=== PATIENT | female | born 1945 | race Two or more races ===

== ENCOUNTER 2022-10-01 15:00 | Emergency (ER) | payer MEDICARE, OTHER ==
[~2022-10-01] VITALS: Ht 167.6 cm; Wt 72.6 kg
--- NOTE | 2022-10-01 15:05 | NUR ---
Pt ambulatory to room 1B, brought in by . Pt c/o pain to the right side of her chest since yesterday. Placed on monitoring coordinator, BP and pulse ox, EKG done. Pt states history of HTN, takes a prescribed medication for it but does not know the name.
[2022-10-01 16:02] LABS: HEMATOCRIT 40.8 % (31.2-41.9); MEAN CORPUSCULAR HEMOGLOBIN 27.7 uug (24.7-32.8); MEAN CORPUSCULAR VOLUME 85.1 fL (75.5-95.3); PLATELET COUNT (AUTO) 158 K/uL (179-408)
[2022-10-01 16:18] LABS: BILIRUBIN,TOTAL 0.2 mg/dL (0.2-1.0); CREATININE 0.8 mg/dL (0.6-1.3); POTASSIUM 3.9 mmol/L (3.5-5.1); TOTAL PROTEIN, SERUM 7.4 g/dL (6.4-8.2)
[2022-10-01] MEDS ORDERED: HYDR-4209 PO (16:56)
[2022-10-01] MEDS ORDERED: HYDR-3980 PO (16:58)
[2022-10-01 17:12] VITALS: BP 139/93
--- NOTE | 2022-10-01 17:14 | NUR ---
Patient discharged to home in stable condition. Written and verbal after care instructions given. Patient verbalizes understanding of instructions. Stressed follow up or return to ER for worsening s/s.
== END 2022-10-01 17:14 | disposition home or self-care (01) ==
LOC: ER 15:00
DX: R07.89 Other chest pain (principal); R22.2 Localized swelling, mass and lump, trunk; I10 Essential (primary) hypertension
CPT/HCPCS: 36415; 71045; 84484; 85025; 93005; A4663